=== PATIENT | female | born 1965 | race Caucasian/White ===

== ENCOUNTER 2016-08-25 19:30 | Emergency (ER) | payer OTHER ==
[2016-08-25] MEDS ORDERED: Sodium Chloride 0.9% 1000 ML 1,000 ML IV STA (19:52)
[2016-08-25] MEDS ORDERED: Hydromorphone 1 mg/ml Ampule IV ONE ×2 (19:52→21:14)
[2016-08-25] MEDS ORDERED: Phenergan 25 MG INJ IV ONE (19:52)
[2016-08-25] MEDS ORDERED: Sodium Chloride 0.9% 1000 ML 1,000 ML ONE (19:57)
[2016-08-25] MEDS ORDERED: Hydromorphone 1 mg/ml Ampule ONE ×2 (19:57→21:16)
[2016-08-25] MEDS ORDERED: Phenergan 25 MG INJ ONE (19:57)
--- NOTE | 2016-08-25 19:58 | ERPHSYRPT ---
- History of Present Illness Time Seen by Provider: 08/25/16 19:44 Historian: patient Exam Limitations: no limitations Patient Subjective Stated Complaint: Pt sts vomiting, diarrhea, left lower back/ flank/LLQ pain since Friday. Sts chills/sweats at night since pain onset Friday. Hx of colon resection 4 years ago from diverticulitis. Pt sts 4 episodes of vomiting, 4 diarrhea episodes. Triage Nursing Assessment: Pt alert, oriented, answers all questions appropriately. Skin p/w/d, resps non-labored. Pt ambulatory, steady gait noted. Pt provided urine specimen at triage. Tenderness with palpation left lower abd. Physician History: FOR THE PAST 3 DAYS PT HAS HAD CONSTANT WAXING/WANING SHARP LLQ ABDOMINAL PAIN RADIATING TO THE LEFT LOWER BACK WITH CHILLS AND DIARRHEA X4. PT VOMITED X4 WITHOUT BLOOD SINCE YESTERDAY. PT HAS HAD A COLON RESECTION IN [address] ESTRADA IN [place], [place]. PT ALSO C/O OCCASIONAL HEADACHES(ONGOING). Allergies/Adverse Reactions: morphine Allergy (Mild, Verified 08/25/16 19:49) Hives SEVERE ITCHING Home Medications: Nebivolol HCl [Bystolic] 5 mg PO DAILY 08/25/16 [History] Hx Tetanus, Diphtheria Vaccination/Date Given: Yes Hx Influenza Vaccination/Date Given: Yes Hx Pneumococcal Vaccination/Date Given: Yes - Review of Systems Constitutional: Chills Abdominal/Gastrointestinal: Abdominal Pain, Vomiting, Diarrhea Musculoskeletal: Back Pain (LEFT LOWER BACK PAIN) Neurological: Headache (OCCASIONAL) All Other Systems: Reviewed and Negative - Past Medical History Pertinent Past Medical History: Yes Neurological History: No Pertinent History ENT History: No Pertinent History Cardiac History: Hypertension Respiratory History: No Pertinent History Endocrine Medical History: No Pertinent History Musculoskeletal History: No Pertinent History GI Medical History: Diverticulitis History: No Pertinent History Psycho-Social History: No Pertinent History Female Reproductive Disorders: Endometriosis - Past Surgical History Past Surgical History: Yes Neuro Surgical History: No Pertinent History Cardiac: No Pertinent History Respiratory: No Pertinent History Gastrointestinal: Colon Resection Genitourinary: No Pertinent History Musculoskeletal: No Pertinent History Female Surgical History: Section, Hysterectomy Other Surgical History: pt has hx of 2 c-sections, and a colon resection 4 years - Social History Smoking Status: Never smoker How long have you smoked: 5 years Exposure to second hand smoke: Yes Alcohol Use: None Drug Use: none Patient Lives Alone: No Significant Family History: no pertinent family hx - Nursing Vital Signs Nursing Vital Signs: Initial Vital Signs Temperature 99.7 F Temperature Source Oral Pulse Rate 101 Respiratory Rate 20 Blood Pressure [Left Arm] 170/101 Pain Intensity 6 - Physical Exam General Appearance: alert Eye Exam: PERRL/EOMI Ears, Nose, Throat Exam: TMs normal, pharynx normal Neck Exam: normal inspection Respiratory Exam: lungs clear Cardiovascular Exam: normal heart sounds Gastrointestinal/Abdomen Exam: soft, normal bowel sounds, tenderness (MILD LEFT LOWER ABDOMINAL TENDERNESS) Back Exam: normal range of motion Extremity Exam: normal inspection, No swelling Neurologic Exam: alert, cooperative Skin Exam: warm, dry SpO2 Interpretation: normal SpO2: 96 Oxygen Delivery: Room Air - Course Nursing assessment & vital signs reviewed: Yes - CT Exams Abdomen/Pelvis CT Interpretation: Tele-radiologist Report (INCREASED STOOL WITHIN THE ASCENDING , TRANSVERSE AND PROXIMAL DESCENDING COLON. MILD SIGMOID DIVERTICULOSIS. BILATERAL SPONDYLOLYSIS AT L5.) Ordered Tests: Active Orders 24 hr Category Date Time Status Clean Catch Urine Specimen STAT Care 08/25/16 19:52 Active IV Insertion STAT Care 08/25/16 19:52 Active ABDOMEN AND PELVIS W/0 CONTRAS [CT] Stat Exams 08/25/16 19:52 Taken AMYLASE Stat Lab 08/25/16 20:00 Completed CBC W DIFF Stat Lab 08/25/16 20:00 Completed CMP Stat Lab 08/25/16 20:00 Completed LIPASE Stat Lab 08/25/16 20:00 Completed MAG [MAGNESIUM] Stat Lab 08/25/16 20:00 Completed UA W/ MICROSCOPIC Stat Lab 08/25/16 20:00 Completed Medication Summary Discontinued Medications Generic Name Dose Route Start Last Admin Trade Name Freq PRN Reason Stop Dose Admin Hydromorphone HCl 1 mg 08/25/16 19:52 08/25/16 20:04 Hydromorphone 1 Mg/Ml Ampule IV 08/25/16 19:53 1 mg STAT ONE Administration Hydromorphone HCl Confirm 08/25/16 19:57 Hydromorphone 1 Mg/Ml Ampule Administered 08/25/16 19:58 Dose 1 mg .ROUTE .STK-MED ONE Hydromorphone HCl 1 mg 08/25/16 21:14 Hydromorphone 1 Mg/Ml Ampule IV 08/25/16 21:15 STAT ONE Hydromorphone HCl Confirm 08/25/16 21:16 Hydromorphone 1 Mg/Ml Ampule Administered 08/25/16 21:17 Dose 1 mg .ROUTE .STK-MED ONE Sodium Chloride 1,000 mls @ 999 mls/hr 08/25/16 19:52 08/25/16 20:04 Sodium Chloride 0.9% 1000 Ml IV 08/25/16 20:52 999 mls/hr .Q1H1M STA Administration Sodium Chloride Confirm 08/25/16 19:57 Sodium Chloride 0.9% 1000 Ml Administered 08/25/16 19:58 Dose 1,000 mls @ ud .ROUTE .STK-MED ONE Promethazine HCl 12.5 mg 08/25/16 19:52 08/25/16 20:05 Phenergan 25 Mg Inj IV 08/25/16 19:53 12.5 mg STAT ONE Administration Promethazine HCl Confirm 08/25/16 19:57 Phenergan 25 Mg Inj Administered 08/25/16 19:58 Dose 25 mg .ROUTE .STK-MED ONE Lab/Rad Data: Laboratory Result Diagrams 08/25/16 20:00 08/25/16 20:00 Laboratory Results 08/25/16 08/25/16 08/25/16 Range/Units 20:00 20:00 20:00 WBC 8.5 (4.0-10.5) K/mm3 RBC 4.43 (4.1-5.4) M/mm3 Hgb 13.3 (12.0-16.0) gm/dl Hct 41.3 (35-47) % MCV 93.2 (78-100) fl MCH 30.0 (26-32) pg MCHC 32.2 (32-36) g/dl RDW 13.2 (11.5-14.0) % Plt Count 313 (150-450) K/mm3 MPV 10.2 H (6-9.5) fl Gran % 56.6 (36.0-66.0) % Lymphocytes % 32.3 (24.0-44.0) % Monocytes % 7.4 (0.0-12.0) % Eosinophils % 3.1 (0.00-5.0) % Basophils % 0.6 (0.0-0.4) % Basophils # 0.05 (0-0.4) Sodium 145 (136-145) mEq/L Potassium 3.9 (3.5-5.1) mEq/L Chloride 105 (98-107) mEq/L Carbon Dioxide 27.5 (21-32) mEq/L Anion Gap 15.9 H (5-15) MEQ/L BUN 15 (9-20) mg/dL Creatinine 1.04 (0.55-1.30) mg/dl Estimated GFR 60 ML/MIN Glucose 107 (70-110) MG/DL Calcium 9.6 (8.5-10.1) mg/dL Magnesium 2.1 (1.8-2.4) mg/dL Total Bilirubin 0.60 (0.2-1.0) mg/dL AST 12 L (15-37) U/L ALT 18 (12-78) U/L Alkaline Phosphatase 51 (46-116) U/L Serum Total Protein 7.8 (6.4-8.2) gm/dL Albumin 3.8 (3.4-5.0) g/dL Amylase 46 (25-115) U/L Lipase 143 (73-393) U/L Ur Collection Type Urine Color (YELLOW) Urine Appearance (CLEAR) Urine pH (5-6) Ur Specific [place] (1.005-1.025) Urine Protein (Negative) Urine Glucose (UA) (NEGATIVE) mg/dL Urine Ketones (NEGATIVE) Urine Nitrite (NEGATIVE) Urine Bilirubin (NEGATIVE) Urine Urobilinogen (0-1) mg/dL Urine WBC (Auto) (NEGATIVE) Urine RBC (Auto) (0-5) Curtis/ul Ur Epithelial Cells (FEW) /HPF Urine Bacteria (NEGATIVE) /HPF Specimen Received 08/25/16 Range/Units 20:00 WBC (4.0-10.5) K/mm3 RBC (4.1-5.4) M/mm3 Hgb (12.0-16.0) gm/dl Hct (35-47) % MCV (78-100) fl MCH (26-32) pg MCHC (32-36) g/dl RDW (11.5-14.0) % Plt Count (150-450) K/mm3 MPV (6-9.5) fl Gran % (36.0-66.0) % Lymphocytes % (24.0-44.0) % Monocytes % (0.0-12.0) % Eosinophils % (0.00-5.0) % Basophils % (0.0-0.4) % Basophils # (0-0.4) Sodium (136-145) mEq/L Potassium (3.5-5.1) mEq/L Chloride (98-107) mEq/L Carbon Dioxide (21-32) mEq/L Anion Gap (5-15) MEQ/L BUN (9-20) mg/dL Creatinine (0.55-1.30) mg/dl Estimated GFR ML/MIN Glucose (70-110) MG/DL Calcium (8.5-10.1) mg/dL Magnesium (1.8-2.4) mg/dL Total Bilirubin (0.2-1.0) mg/dL AST (15-37) U/L ALT (12-78) U/L Alkaline Phosphatase (46-116) U/L Serum Total Protein (6.4-8.2) gm/dL Albumin (3.4-5.0) g/dL Amylase (25-115) U/L Lipase (73-393) U/L Ur Collection Type CLEAN CATCH Urine Color YELLOW (YELLOW) Urine Appearance CLEAR (CLEAR) Urine pH 6.0 (5-6) Ur Specific [place] 1.025 (1.005-1.025) Urine Protein 30 (Negative) Urine Glucose (UA) NEGATIVE (NEGATIVE) mg/dL Urine Ketones NEGATIVE (NEGATIVE) Urine Nitrite NEGATIVE (NEGATIVE) Urine Bilirubin NEGATIVE (NEGATIVE) Urine Urobilinogen 1 (0-1) mg/dL Urine WBC (Auto) NEGATIVE (NEGATIVE) Urine RBC (Auto) NEGATIVE (0-5) Curtis/ul Ur Epithelial Cells FEW (FEW) /HPF Urine Bacteria RARE (NEGATIVE) /HPF Specimen Received 08/25/16:1999 - Departure Time of Disposition: 21:28 Departure Disposition: Home Clinical Impression: ABDOMINAL PAIN, VOMITING, DIARRHEA Condition: Fair Critical Care Time: No Instructions: Abdominal Pain-Adult, Vomiting -- Adult, Diarrhea and Traveler's Diarrhea -- Adult Additional Instructions: FOLLOW UP WITH PRIVATE DOCTOR TOMORROW. Prescriptions: Promethazine HCl 25 mg [Phenergan 25 mg] 25 mg PO Q4H PRN PRN #14 tablet PRN Reason: Nausea/Vomiting
[2016-08-25 20:10] LABS: BASOPHIL % 0.6 % (0.0-0.4); Eosinophil % 3.1 % (0.00-5.0); Granulocytes % 56.6 % (36.0-66.0); Lymphocytes % 32.3 % (24.0-44.0); Mean Cell Volume 93.2 fl (78-100); Mean Platelet Volume 10.2 fl (6-9.5); Monocytes % 7.4 % (0.0-12.0); Platelet Count 313 K/mm3 (150-450); Red Blood Count 4.43 M/mm3 (4.1-5.4); Red Cell Distribution Width 13.2 % (11.5-14.0); White Blood Count 8.5 K/mm3 (4.0-10.5)
[2016-08-25 20:20] LABS: ADD URINE CULTURE? NO (NO); Bacteria RARE /HPF (NEGATIVE); COMPLETE URINE MICROSCOPIC? YES; Collection Type CLEAN CATCH; Epithelial Cells FEW /HPF (FEW)
[2016-08-25 20:31] LABS: ALBUMIN 3.8 g/dL (3.4-5.0); ANION GAP 15.9 MEQ/L (5-15); BILIRUBIN,TOTAL 0.6 mg/dL (0.2-1.0); Carbon Dioxide 27.5 mEq/L (21-32); Potassium 3.9 mEq/L (3.5-5.1); Total Protein 7.8 gm/dL (6.4-8.2)
[2016-08-25] MEDS ORDERED: TORAdol 30 mg Injection IV ONE (21:29)
[2016-08-25] MEDS ORDERED: Catapres 0.1 MG PO ONE (21:29)
[2016-08-25] MEDS ORDERED: TORAdol 30 mg Injection ONE (21:37)
[2016-08-25] MEDS ORDERED: Catapres 0.1 MG ONE (21:37)
[2016-08-25 22:01] VITALS: BP 165/107; PULSE 106; O2SAT 97
--- NOTE | 2016-08-26 08:40 | XRAY ---
Indication: Left lower quadrant pain, emesis, and diarrhea. Multiple contiguous axial images obtained through the abdomen and pelvis without contrast as ordered.. Comparison: October 29, 2015. Lung bases demonstrates minimal bibasilar dependent atelectasis clear. Heart is not enlarged. Stomach is distended with fluid. Noncontrasted bowel loops appear nonobstructed. There is mild diffuse scattered colonic fecal debris. Stable minimal scattered colonic diverticulosis and intact descending colonic anastomosis. Previous reported appendectomy and partial hysterectomy. No free fluid/air. Remaining liver, gallbladder, pancreas, spleen, adrenal glands, kidneys, ureters, and aorta appear unremarkable for noncontrast exam. Osseous structures intact with stable bilateral L5 spondylolysis and minimal grade 1 spondylolisthesis. Impression: 1. Mild fecal stasis without obstruction. Stable colonic diverticulosis without diverticulitis. 2. Stable bilateral L5 spondylolysis with grade 1 spondylolisthesis. Comment: Preliminary interpretation was made by [facility]. No discrepancy. CTDI 18.21
== END 2016-08-25 22:12 | disposition home or self-care (01) ==
LOC: ED 19:30
DX: R10.9 Unspecified abdominal pain (principal); R11.10 Vomiting, unspecified; R19.7 Diarrhea, unspecified; M54.5 Low back pain; R10.32 Left lower quadrant pain
CPT/HCPCS: 36000; 36415; 74176; 80053; 81000; 82150; 83690; 83735; 85025; 96360; 96361; 96374; 96375; 99284; J1170; J1885; J2550; A9270-GY

== ENCOUNTER 2016-10-31 08:51 | Emergency (ER) | payer OTHER ==
[2016-10-31 08:56] VITALS: O2SAT 96
[2016-10-31] MEDS ORDERED: Sodium Chloride 0.9% 1000 ML 1,000 ML IV STA (09:03)
[2016-10-31] MEDS ORDERED: Zofran 4 MG/2 ML VIAL IV ONE ×2 (09:03→10:55)
[2016-10-31] MEDS ORDERED: BENADRYL 50 MG/ML IV ONE ×2 (09:03→10:55)
[2016-10-31] MEDS ORDERED: Hydromorphone 1 mg/ml Ampule IV ONE (09:03)
--- NOTE | 2016-10-31 09:09 | ERPHSYRPT ---
- History of Present Illness Time Seen by Provider: 10/31/16 08:55 Historian: patient Patient Subjective Stated Complaint: PT HERE FOR LEFT SIDED ABD PAIN , WITH VOMITING SINCE FRIDAY, WITH LOOSE STOOLS, NO FEVER Triage Nursing Assessment: PT ALERT RESP EASY, WALKIED IN,ABD SOFT Physician History: CC: abd pain Hx: 51 y/o patient with hx of colon resection for diverticulitis and hysterectomy. She has left lower quad abd pain for two days, nausea, vomiting, diarrhea. She has had some off and on diarrhea prior. PAin aching and moderate. She has GI appt with Dr Crowe next week. No blood in stool. No fever but she has chills. Timing/Duration: day(s) (2) Quality: aching, cramping Abdominal Pain Onset Location: LLQ Severity of Pain-Max: moderate Severity of Pain-Current: moderate Allergies/Adverse Reactions: morphine Allergy (Mild, Verified 10/31/16 08:55) Hives SEVERE ITCHING Home Medications: Nebivolol HCl [Bystolic] 5 mg PO DAILY 08/25/16 [History] Escitalopram Oxalate 10 mg [Lexapro 10 MG] 10 mg DAILY 10/31/16 [History] Hx Tetanus, Diphtheria Vaccination/Date Given: Yes Hx Influenza Vaccination/Date Given: Yes Hx Pneumococcal Vaccination/Date Given: Yes Immunizations Up to Date: Yes - Review of Systems Constitutional: Chills, No Fever Eyes: No Symptoms Ears, Nose, & Throat: No Symptoms Respiratory: No Cough, No Dyspnea Cardiac: No Chest Pain Abdominal/Gastrointestinal: Abdominal Pain, Nausea, Vomiting, Diarrhea, No Hematemesis, No Hematochezia Genitourinary Symptoms: No Dysuria Musculoskeletal: No Back Pain Skin: No Rash Neurological: No Headache All Other Systems: Reviewed and Negative - Past Medical History Pertinent Past Medical History: Yes Neurological History: No Pertinent History ENT History: No Pertinent History Cardiac History: Hypertension Respiratory History: No Pertinent History Endocrine Medical History: No Pertinent History Musculoskeletal History: No Pertinent History GI Medical History: Diverticulosis History: No Pertinent History Psycho-Social History: No Pertinent History Female Reproductive Disorders: Endometriosis - Past Surgical History Past Surgical History: Yes Neuro Surgical History: No Pertinent History Cardiac: No Pertinent History Respiratory: No Pertinent History Gastrointestinal: Colon Resection Genitourinary: No Pertinent History Musculoskeletal: No Pertinent History Female Surgical History: Hysterectomy, Section Other Surgical History: pt has hx of 2 c-sections, and a colon resection 4 years - Social History Smoking Status: Former smoker How long have you smoked: 5 years Exposure to second hand smoke: No Alcohol Use: None Drug Use: none Patient Lives Alone: No Significant Family History: no pertinent family hx - Female History Hx Last Menstrual Period: POST - Nursing Vital Signs Nursing Vital Signs: Initial Vital Signs Temperature 98.7 F 10/31/16 08:52 Pulse Rate 85 10/31/16 08:52 Respiratory Rate 16 10/31/16 08:52 Blood Pressure 132/100 10/31/16 08:52 O2 Sat by Pulse Oximetry 96 10/31/16 08:52 Pain Scale Pain Intensity 8 - Physical Exam General Appearance: alert Eye Exam: PERRL/EOMI, No scleral icterus Ears, Nose, Throat Exam: normal ENT inspection, moist mucous membranes Neck Exam: normal inspection, non-tender, supple Respiratory Exam: normal breath sounds Cardiovascular Exam: regular rate/rhythm, No murmur Gastrointestinal/Abdomen Exam: soft, tenderness (LLQ, no mass mild guarding) Back Exam: normal inspection, normal range of motion Extremity Exam: normal inspection, normal range of motion Neurologic Exam: alert, oriented x 3, cooperative, front clerk II-XII nml as tested, sensation nml, No motor deficits Skin Exam: warm, dry, No rash SpO2 Interpretation: normal SpO2: 96 Oxygen Delivery: Room Air - Course Nursing assessment & vital signs reviewed: Yes - CT Exams abd/pelvis CT Interpretation: Tele-radiologist Report (new fluid distended duodenum and jejunum with waqll thickening/enhancing favoring enteritis. Fecal stasis. Spondylolysis/listhesis) Ordered Tests: Active Orders 24 hr Category Date Time Status Clean Catch Urine Specimen STAT Care 10/31/16 08:58 Active IV Insertion STAT Care 10/31/16 08:58 Active NPO (ED) STAT Care 10/31/16 08:58 Active ABDOMEN AND PELVIS W CONTRAST [CT] Stat Exams 10/31/16 09:03 Completed CBC W DIFF Stat Lab 10/31/16 09:20 Completed CMP Stat Lab 10/31/16 09:20 Completed CULTURE,URINE Stat Lab 10/31/16 09:20 Received LIPASE Stat Lab 10/31/16 09:20 Completed Lactic Acid Stat Lab 10/31/16 09:20 Completed UA W/ MICROSCOPIC Stat Lab 10/31/16 09:20 Completed Medication Summary Discontinued Medications Generic Name Dose Route Start Last Admin Trade Name Zita PRN Reason Stop Dose Admin Diphenhydramine HCl 25 mg 10/31/16 09:03 10/31/16 09:18 Benadryl 50 Mg/Ml IV 10/31/16 09:04 25 mg STAT ONE Administration Diphenhydramine HCl Confirm 10/31/16 09:12 Benadryl 50 Mg/Ml Administered 10/31/16 09:13 Dose 50 mg .ROUTE .STK-MED ONE Diphenhydramine HCl 25 mg 10/31/16 10:55 10/31/16 11:03 Benadryl 50 Mg/Ml IV 10/31/16 10:56 25 mg STAT ONE Administration Diphenhydramine HCl Confirm 10/31/16 11:00 Benadryl 50 Mg/Ml Administered 10/31/16 11:01 Dose 50 mg .ROUTE .STK-MED ONE Famotidine 20 mg 10/31/16 10:56 10/31/16 11:03 Pepcid 20 Mg Vial IV 10/31/16 10:57 20 mg STAT ONE Administration Famotidine Confirm 10/31/16 11:00 Pepcid 20 Mg Vial Administered 10/31/16 11:01 Dose 20 mg IV .STK-MED ONE Hydromorphone HCl 1 mg 10/31/16 09:03 10/31/16 09:18 Hydromorphone 1 Mg/Ml Ampule IV 10/31/16 09:04 1 mg STAT ONE Administration Hydromorphone HCl Confirm 10/31/16 09:12 Hydromorphone 1 Mg/Ml Ampule Administered 10/31/16 09:13 Dose 1 mg .ROUTE .STK-MED ONE Sodium Chloride 1,000 mls @ 999 mls/hr 10/31/16 09:03 10/31/16 09:18 Sodium Chloride 0.9% 1000 Ml IV 10/31/16 10:03 999 mls/hr .Q1H1M STA Administration Sodium Chloride Confirm 10/31/16 09:13 Sodium Chloride 0.9% 1000 Ml Administered 10/31/16 09:14 Dose 1,000 mls @ ud .ROUTE .STK-MED ONE Ondansetron HCl 4 mg 10/31/16 09:03 10/31/16 09:18 Zofran 4 Mg/2 Ml Vial IV 10/31/16 09:04 4 mg STAT ONE Administration Ondansetron HCl Confirm 10/31/16 09:12 Zofran 4 Mg/2 Ml Vial Administered 10/31/16 09:13 Dose 4 mg .ROUTE .STK-MED ONE Ondansetron HCl 4 mg 10/31/16 10:55 10/31/16 11:03 Zofran 4 Mg/2 Ml Vial IV 10/31/16 10:56 4 mg STAT ONE Administration Ondansetron HCl Confirm 10/31/16 11:00 Zofran 4 Mg/2 Ml Vial Administered 10/31/16 11:01 Dose 4 mg .ROUTE .STK-MED ONE Lab/Rad Data: Laboratory Result Diagrams 10/31/16 09:20 10/31/16 09:20 Laboratory Results 10/31/16 10/31/16 10/31/16 Range/Units 09:20 09:20 09:20 WBC 7.5 (4.0-10.5) K/mm3 RBC 4.18 (4.1-5.4) M/mm3 Hgb 12.8 (12.0-16.0) gm/dl Hct 39.4 (35-47) % MCV 94.3 (78-100) fl MCH 30.6 (26-32) pg MCHC 32.5 (32-36) g/dl RDW 13.9 (11.5-14.0) % Plt Count 257 (150-450) K/mm3 MPV 10.0 H (6-9.5) fl Gran % 59.4 (36.0-66.0) % Lymphocytes % 28.3 (24.0-44.0) % Monocytes % 7.0 (0.0-12.0) % Eosinophils % 4.8 (0.00-5.0) % Basophils % 0.5 (0.0-0.4) % Basophils # 0.04 (0-0.4) Sodium 141 (136-145) mEq/L Potassium 4.0 (3.5-5.1) mEq/L Chloride 104 (98-107) mEq/L Carbon Dioxide 26.4 (21-32) mEq/L Anion Gap 14.1 (5-15) MEQ/L BUN 14 (9-20) mg/dL Creatinine 0.95 (0.55-1.30) mg/dl Estimated GFR > 60 ML/MIN Glucose 124 H (70-110) MG/DL Lactic Acid 1.2 (0.4-2.0) Calcium 9.4 (8.5-10.1) mg/dL Total Bilirubin 0.40 (0.2-1.0) mg/dL AST 13 L (15-37) U/L ALT 16 (12-78) U/L Alkaline Phosphatase 41 L (46-116) U/L Serum Total Protein 7.3 (6.4-8.2) gm/dL Albumin 4.2 (3.4-5.0) g/dL Lipase 117 (73-393) U/L Ur Collection Type Urine Color (YELLOW) Urine Appearance (CLEAR) Urine pH (5-6) Ur Specific [place] (1.005-1.025) Urine Protein (Negative) Urine Ketones (NEGATIVE) Urine Blood (0-5) Curtis/ul Urine Nitrite (NEGATIVE) Urine Bilirubin (NEGATIVE) Urine Urobilinogen (0-1) mg/dL Ur Leukocyte Esterase (NEGATIVE) Urine Microscopic RBC (0-2) /HPF Urine Microscopic WBC (0-5) /HPF Ur Epithelial Cells (FEW) /HPF Urine Bacteria (NEGATIVE) /HPF Urine Mucus (NEGATIVE) /HPF Urine Glucose (NEGATIVE) mg/dL Specimen Received 10/31/16 Range/Units 09:20 WBC (4.0-10.5) K/mm3 RBC (4.1-5.4) M/mm3 Hgb (12.0-16.0) gm/dl Hct (35-47) % MCV (78-100) fl MCH (26-32) pg MCHC (32-36) g/dl RDW (11.5-14.0) % Plt Count (150-450) K/mm3 MPV (6-9.5) fl Gran % (36.0-66.0) % Lymphocytes % (24.0-44.0) % Monocytes % (0.0-12.0) % Eosinophils % (0.00-5.0) % Basophils % (0.0-0.4) % Basophils # (0-0.4) Sodium (136-145) mEq/L Potassium (3.5-5.1) mEq/L Chloride (98-107) mEq/L Carbon Dioxide (21-32) mEq/L Anion Gap (5-15) MEQ/L BUN (9-20) mg/dL Creatinine (0.55-1.30) mg/dl Estimated GFR ML/MIN Glucose (70-110) MG/DL Lactic Acid (0.4-2.0) Calcium (8.5-10.1) mg/dL Total Bilirubin (0.2-1.0) mg/dL AST (15-37) U/L ALT (12-78) U/L Alkaline Phosphatase (46-116) U/L Serum Total Protein (6.4-8.2) gm/dL Albumin (3.4-5.0) g/dL Lipase (73-393) U/L Ur Collection Type VOID Urine Color YELLOW (YELLOW) Urine Appearance HAZY (CLEAR) Urine pH 5.0 (5-6) Ur Specific [place] 1.030 (1.005-1.025) Urine Protein TRACE (Negative) Urine Ketones NEGATIVE (NEGATIVE) Urine Blood 5-10 (0-5) Curtis/ul Urine Nitrite NEGATIVE (NEGATIVE) Urine Bilirubin NEGATIVE (NEGATIVE) Urine Urobilinogen NORMAL (0-1) mg/dL Ur Leukocyte Esterase TRACE (NEGATIVE) Urine Microscopic RBC 0-2 (0-2) /HPF Urine Microscopic WBC 5-10 (0-5) /HPF Ur Epithelial Cells MODERATE (FEW) /HPF Urine Bacteria FEW (NEGATIVE) /HPF Urine Mucus MANY (NEGATIVE) /HPF Urine Glucose NEGATIVE (NEGATIVE) mg/dL Specimen Received 10/31/16919 - Progress Progress Note: 10/31/16 09:[address] to assess for diverticulitis. 10/31/16 11:07 Advised follow up with GI Dr Crowe. Will release with instr. Counseled pt/family regarding: lab results, diagnosis, need for follow-up, rad results - Departure Time of Disposition: 11:08 Departure Disposition: Home Clinical Impression: Abdominal pain, Duodenitis Condition: Stable Critical Care Time: No Referrals: TANG JIANG NP [Primary Care Provider] - KELLI CROWE [NON-STAFF PHY W/O PRIVILEGES] - Instructions: Abdominal Pain-Adult Additional Instructions: Rx pepcid 20mg twice a day. Rx ondansetron for nausea. [place] diet. Follow up with Dr Crowe. ABDOMINAL PAIN 1. There are several different causes for abdominal pain, some of which may not be able to be identified on initial examination. 2. The important thing to remember is that bodily functions can change in a short period of time. If you notice any of the following symptoms, return to the emergency department or consult your doctor immediately: A. Worsening pain or no improvement in the next 12 hours. B. Increasing, severe abdominal pain C. Blood in stool D. Black stools E. Persistent vomiting F. Fever or chills or other symptoms Prescriptions: Ondansetron [Zofran Odt] 4 mg PO Q6HPRN PRN #10 tab.rapdis PRN Reason: Nausea/Vomiting Famotidine 20 mg [Pepcid 20 MG] 1 tab PO BID #30 tablet
[2016-10-31] MEDS ORDERED: Zofran 4 MG/2 ML VIAL ONE ×2 (09:12→11:00)
[2016-10-31] MEDS ORDERED: Hydromorphone 1 mg/ml Ampule ONE (09:12)
[2016-10-31] MEDS ORDERED: BENADRYL 50 MG/ML ONE ×2 (09:12→11:00)
[2016-10-31] MEDS ORDERED: Sodium Chloride 0.9% 1000 ML 1,000 ML ONE (09:13)
[2016-10-31 09:35] LABS: BASOPHIL % 0.5 % (0.0-0.4); Eosinophil % 4.8 % (0.00-5.0); Granulocytes % 59.4 % (36.0-66.0); Lymphocytes % 28.3 % (24.0-44.0); Mean Cell Volume 94.3 fl (78-100); Mean Corpuscular Hemoglobin 30.6 pg (26-32); Platelet Count 257 K/mm3 (150-450); Red Blood Count 4.18 M/mm3 (4.1-5.4); Red Cell Distribution Width 13.9 % (11.5-14.0); White Blood Count 7.5 K/mm3 (4.0-10.5)
[2016-10-31 09:47] LABS: Bilirubin NEGATIVE (NEGATIVE); COMPLETE URINE MICROSCOPIC? YES; Collection Type VOID; Glucose NEGATIVE (NEGATIVE); Leukocyte Esterase TRACE (NEGATIVE)
[2016-10-31 09:48] LABS: ADD URINE CULTURE? YES (NO)
[2016-10-31 09:51] LABS: ALBUMIN 4.2 g/dL (3.4-5.0); ALKALINE PHOSPHATASE 41 U/L (46-116); ANION GAP 14.1 MEQ/L (5-15); BLOOD UREA NITROGEN 14 mg/dL (9-20); CHLORIDE 104 mEq/L (98-107); Carbon Dioxide 26.4 mEq/L (21-32); Glucose 124 MG/DL (70-110); LIPASE 117 U/L (73-393); SGOT/AST 13 U/L (15-37); SGPT/ALT 16 U/L (12-78); SODIUM 141 mEq/L (136-145); Total Protein 7.3 gm/dL (6.4-8.2)
[2016-10-31 09:54] LABS: Bacteria FEW /HPF (NEGATIVE); Epithelial Cells MODERATE /HPF (FEW); Mucus MANY /HPF (NEGATIVE)
[2016-10-31] MEDS ORDERED: Pepcid 20 MG VIAL IV ONE ×2 (10:56→11:00)
--- NOTE | 2016-10-31 10:59 | XRAY ---
Indication: Left lower quadrant pain, emesis, and diarrhea. Multiple contiguous axial images obtained through the abdomen and pelvis using 80 cc Isovue 370 contrast only. Comparison: August 25, 2016. Lung bases again demonstrates minimal bibasilar dependent atelectasis clear. Heart is not enlarged. Noncontrasted stomach and bowel loops appear nonobstructed. There is now mild fluid distended duodenum and proximal jejunum with some wall thickening/enhancement favoring enteritis. There remains mild diffuse scattered colonic fecal debris more than before. Stable minimal proximal sigmoid diverticulosis and intact descending colonic anastomosis. Again previous reported appendectomy and partial hysterectomy. No free fluid/air. Remaining liver, gallbladder, pancreas, spleen, adrenal glands, kidneys, ureters, and aorta appear unremarkable. Osseous structures intact with stable bilateral L5 spondylolysis and minimal grade 1 . Ppondylolisthesis. Impression: 1. New fluid distended duodenum and jejunum with wall thickening/enhancement favoring enteritis. 2. Worsening fecal stasis without obstruction. 3. Stable bilateral L5 spondylolysis with grade 1 spondylolisthesis. CTDI 21.04
[2016-10-31 11:51] VITALS: BP 164/84; PULSE 88
== END 2016-10-31 11:50 | disposition home or self-care (01) ==
LOC: ED 08:51
DX: R10.32 Left lower quadrant pain (principal); K29.80 Duodenitis without bleeding; R11.2 Nausea with vomiting, unspecified; R19.7 Diarrhea, unspecified; I10 Essential (primary) hypertension
CPT/HCPCS: 36000; 36415; 74177; 80053; 81000; 83605; 83690; 85025; 87086; 96360; 96374; 96375; 96376; 99283; 99284; J1170; J1200; J2405